=== PATIENT | male | born 1970 | race African-American/Black ===

== ENCOUNTER 2017-03-06 19:14 | Emergency (ER) | payer OTHER ==
[2017-03-06 19:23] VITALS: BMI 31.5
--- NOTE | 2017-03-06 20:21 | PDOC ---
History of Present Illness - General History Source: Patient Exam Limitations: No Limitations - History of Present Illness Initial Comments: 03/06/17 20:26 The patient is a 46 year old male with a significant past medical history of H. pylori, severe heartburn, Acid reflux, who presents to the ED complaining of blood in his stool. He states that he noticed streaks of blood in his stool and blood on the toilet paper when he wiped. Patient states he ate a steak and drank a glass of wine three days ago. Patient states he has noticed that in the past he has had stomach issues after eating beef. Pt denies any family gastric history. Pt had a colonoscopy done in December by Dr. Ramachandran that was unremarkable. GI: Dr. Ramachandran <Schuyler Keen - Last Filed: 03/06/17 20:26> - General History Source: Patient Exam Limitations: No Limitations <Gracie Vincent - Last Filed: 03/06/17 21:21> - General Chief Complaint: Bleeding from Anus Stated Complaint: BLOOD IN STOOL Time Seen by Provider: 03/06/17 19:58 Past History <Schuyler Keen - Last Filed: 03/06/17 20:26> - Past Medical History Other medical history: denies - Psycho/Social/Smoking Cessation Hx Suicidal Ideation: No Smoking History: Never smoked <Gracie Vincent - Last Filed: 03/06/17 21:21> - Past Medical History Allergies/Adverse Reactions: Allergies Allergy/AdvReac Type Severity Reaction Status Date / Time No Known Allergies Allergy Verified 03/06/17 19:23 Home Medications: Ambulatory Orders NK [No Known Home Medication] 03/06/17 Review of Systems - Review of Systems Able to Perform ROS?: Yes Comments:: 03/06/17 20:26 GENERAL/CONSTITUTIONAL: No: fever, chills, weakness, loss of appetite. HEAD, EYES, EARS, NOSE AND THROAT: No: change in vision, ear pain, discharge, sore throat, throat swelling. CARDIOVASCULAR: No: chest pain, lightheadedness, palpitations, syncope RESPIRATORY: No: cough, shortness of breath, wheezing, hemoptysis, stridor. GASTROINTESTINAL: + rectal bleeding. No: nausea, vomiting, abdominal cramping, diarrhea, constipation. GENITOURINARY: No: dysuria, hematuria, frequency, urgency, flank pain. MUSCULOSKELET AL: No: back pain, neck pain, joint pain, muscle swelling or pain SKIN AND BREASTS: No: lesions, pallor, rash or easy bruising. NEUROLOGIC: No: headache, vertigo, paresthesias, weakness ENDOCRINE: No: unexplained weight gain or loss HEMATOLOGIC/LYMPHATIC: No: anemia, easy bleeding, swelling nodes <Schuyler Keen - Last Filed: 03/06/17 20:26> *Physical Exam - Vital Signs Last Vital Signs Temp Pulse Resp BP Pulse Ox 97.8 F 77 18 143/77 100 03/06/17 19:20 03/06/17 19:20 03/06/17 19:20 03/06/17 19:20 03/06/17 19:20 - Physical Exam Comments: 03/06/17 20:27 GENERAL: The patient is in no acute distress. HEAD: Normal with no signs of trauma. EYES: PERRLA, EOMI, sclera anicteric, conjunctiva clear. ENT: Ears normal, nares patent, oropharynx clear without exudates. Moist mucous membranes. NECK: Normal range of motion, supple without lymphadenopathy, JVD, or masses. LUNGS: Breath sounds equal, clear to auscultation bilaterally. No wheezes, and no crackles. HEART:Regular rate and rhythm, normal S1 and S2 without murmur, rub or gallop. ABDOMEN: Soft, nontender, normoactive bowel sounds. No guarding, no rebound. EXTREMITIES: Normal range of motion, no edema. No clubbing or cyanosis. No erythema, or tenderness. NEUROLOGICAL: Cranial nerves II through XII grossly intact. Normal speech. No focal neurological deficits. MUSCULOSKELETAL: Back non-tender to palpation, no CVA tenderness SKIN: Warm, Dry, normal turgor, no rashes or lesions noted. RECTAL EXAM: Trace blood. No external hemorrhoids <Schuyler Keen - Last Filed: 03/06/17 20:26> - Vital Signs Last Vital Signs Temp Pulse Resp BP Pulse Ox 97.8 F 77 18 143/77 100 03/06/17 19:20 03/06/17 19:20 03/06/17 19:20 03/06/17 19:20 03/06/17 19:20 <Gracie Vincent - Last Filed: 03/06/17 21:21> ED Treatment Course - LABORATORY CBC & Chemistry Diagram: 03/06/17 20:28 <Gracie Vincent - Last Filed: 03/06/17 21:21> Medical Decision Making - Medical Decision Making 03/06/17 20:21 A portion of this note was documented by scribe services under my direction. I have reviewed the details of the note, within reason, and agree with the documentation with the following case summary and management plan written by me. Nursing documentation reviewed and incorporated into medical decision making 03/06/17 20:38 This is a 46 yo M with a history of ?IBS, h/o H., pylori x 2 Pt presents to the ER today with a complaint that he noted blood in his stool this afternoon when he had a bowel movement He noted several drops of blood in his stool Slightly constipated No rectal pain No abdominal pain S/p colonoscopy in (reportedly negative) Only change in diet was: Steak and Red wine On examination: no external hemorrhoids seen Stool blood tinged Will send basic labs Will send guiaic Laboratory Tests 04/16/11 03/06/17 03/06/17 01:57 20:24 20:28 WBC 8.0 7.2 Hgb 14.4 13.9 Plt Count 255.0 252 Hct 42.0 41.4 Stool Occult Blood Negative will discharge to home Will ask pt to follow up with GI in 1 week Return to the ER for recurrent or persistent symptoms 03/06/17 21:19 <Gracie Vincent - Last Filed: 03/06/17 21:21> *DC/Admit/Observation/Transfer - Attestations Scribe Attestion: 03/06/17 20:27 Documentation prepared by Schuyler Keen, acting as medical engineer for Gracie Vincent MD. <Schuyler Keen - Last Filed: 03/06/17 20:26> - Discharge Dispostion Admit: No <Gracie Vincent - Last Filed: 03/06/17 21:21> Diagnosis at time of Disposition: Rectal bleeding - Discharge Dispostion Disposition: HOME Condition at time of disposition: Stable - Referrals Referrals: Luisito Paez MD [Primary Care Provider] - - Patient Instructions Printed Discharge Instructions: DI for Rectal Bleeding Additional Instructions: Mr. Foreman Thanks for coming in to the ER please follow up with your commercial lending assistant within in 1 week Please return to the ER with any other concerns or complaints, if you notice increased rectal bleeding, or abdominal pain or any thing else that concerns you
[2017-03-06 20:35] LABS: BASOPHIL 0.6 % (0-2.0); EOSINOPHIL 2.2 % (0-4.5); MCHC 33.4 g/dl (32.0-35.9); MEAN CELL VOLUME 92.8 fl (80-96); MEAN PLT VOLUME 7.6 fl (7.5-11.1); NEUTROPHILS 47.2 % (42.8-82.8); PLATELET COUNT 252 K/MM3 (134-434); RDW 13.9 % (11.9-15.9); WHITE BLOOD COUNT 7.2 K/mm3 (4.0-10.0)
[2017-03-06 21:27] VITALS: BP 124/76; PULSE 60; TEMP 98.1
== END 2017-03-06 21:15 | disposition home or self-care (01) ==
LOC: JER 19:14
DX: K62.5 Hemorrhage of anus and rectum (principal); K21.9 Gastro-esophageal reflux disease without esophagitis
CPT/HCPCS: 36415; 82272; 85025; 99282-25

== ENCOUNTER 2018-02-28 19:32 | Emergency (ER) | payer OTHER ==
[2018-02-28 19:49] VITALS: BP 124/70; PULSE 66; TEMP 98.3; BMI 30.9
[2018-02-28] MEDS ORDERED: IBUPROFEN 400 MG TABLET (FP) PO ONE ×2 (20:15→20:17)
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
== END 2018-02-28 20:27 | disposition home or self-care (01) ==
LOC: JERFT 19:32 → JER 19:32 → JERFT 20:27
DX: Z48.01 Encounter for change or removal of surgical wound dressing (principal); Z98.890 Other specified postprocedural states
CPT/HCPCS: 99281-25

== ENCOUNTER 2018-11-21 11:34 | Emergency (ER) | payer OTHER ==
[2018-11-21 12:16] VITALS: BMI 30.8
[2018-11-21] MEDS ORDERED: MAG HYDROX/AL HYDROX/SIMETH -MYLANTA- ORAL SUSPENSION PO ONE (12:20)
[2018-11-21] MEDS ORDERED: FAMOTIDINE 20 MG/50 ML IVPB 20 MG/50 ML MG IVPB ONE ×2 (12:20→12:35)
--- NOTE | 2018-11-21 12:20 | PDOC ---
History of Present Illness - General Chief Complaint: Chest Pain Stated Complaint: CHEST PAIN Time Seen by Provider: 11/21/18 12:17 History Source: Patient - History of Present Illness Timing/Duration: reports: intermittent Quality: reports: severe Abdominal Pain Onset Location: reports: epigastric Pain Radiation: reports: no radiation, back Past History - Past Medical History Allergies/Adverse Reactions: Allergies Allergy/AdvReac Type Severity Reaction Status Date / Time No Known Allergies Allergy Verified 11/21/18 12:09 Home Medications: Ambulatory Orders Pantoprazole Sodium 40 mg PO DAILY 09/19/18 Famotidine [Pepcid] 20 mg PO DAILY #14 tablet 11/21/18 Mag Hydrox/Al Hydrox/Simeth [Mylanta Suspension -] 30 ml PO Q6H #1 bottle Anemia: No Asthma: No Cancer: No Cardiac Disorders: No CVA: No COPD: No CHF: No Dementia: No Diabetes: No GI Disorders: Yes (GERD) Disorders: No HTN: No Hypercholesterolemia: No Liver Disease: No Seizures: No Thyroid Disease: No - Surgical History Abdominal Surgery: No Appendectomy: No Cardiac Surgery: No Cholecystectomy: No Lung Surgery: No Neurologic Surgery: No Orthopedic Surgery: Yes (RIGHT ANKLE SX X4) - Immunization History Immunization Up to Date: Yes - Suicide/Smoking/Psychosocial Hx Smoking History: Current some day smoker Have you smoked in the past 12 months: No If you are a former smoker, when did you quit?: 1999 Information on smoking cessation initiated: No Hx Alcohol Use: No Drug/Substance Use Hx: No Substance Use Type: Alcohol Hx Substance Use Treatment: No Review of Systems - Review of Systems Constitutional: No: Chills, Fever Respiratory: No: Cough, Shortness of Breath Cardiac (ROS): No: Chest Pain, Lightheadedness, Palpitations ABD/GI: No: Diarrhea, Nausea, Rectal Bleeding, Vomiting, Tarry Stools : No: Dysuria, Flank Pain, Hematuria *Physical Exam - Vital Signs Last Vital Signs Temp Pulse Resp BP Pulse Ox 98.2 F 64 18 129/75 100 11/21/18 12:13 11/21/18 12:13 11/21/18 12:13 11/21/18 12:13 11/21/18 12:13 - Physical Exam General Appearance: Yes: Appropriately Dressed. No: Apparent Distress HEENT: positive: Normal Voice Neck: positive: Supple Respiratory/Chest: positive: Lungs Clear, Normal Breath Sounds. negative: Respiratory Distress Cardiovascular: positive: Regular Rate, S1, S2 Gastrointestinal/Abdominal: positive: Normal Bowel Sounds, Soft. negative: Tender, Distended, Guarding, Rebound Musculoskeletal: negative: CVA Tenderness Integumentary: positive: Dry, Warm Neurologic: positive: Fully Oriented, Alert, Normal Mood/Affect Moderate Sedation - Procedure Monitoring Vital Signs: Procedure Monitoring Vital Signs Temperature 98.2 F 11/21/18 12:13 Pulse Rate 64 11/21/18 12:13 Respiratory Rate 18 11/21/18 12:13 Blood Pressure 129/75 11/21/18 12:13 O2 Sat by Pulse Oximetry (%) 100 11/21/18 12:13 ED Treatment Course - LABORATORY CBC & Chemistry Diagram: 11/21/18 12:44 11/21/18 12:44 Medical Decision Making - Medical Decision Making 11/21/18 12:18 48 yo M, endorses h/o GERD/gastritis ~18 years ago, hpylori x 2 (2006, 2007), currently on protonix but non-compliant, f/u with GI, here w/ burning epigastricc pain 4 days that started shortly after eating pasta and drinking coffee per patient. Has been intermittent since. Pt states he stopped taking his protonix several weeks ago because he does not like how he feels after taking meds but states he took a tab yesterday with no relief. Also tried Nexium with no relief. States pain similar to his gastritis/GERD, but now radiating to his mid back. No worsening with exertion and no shortness of breath, diaphoresis, nausea, vomiting, change in bowel movements, melena, BRBPR , f/c. Pt states his last endoscopy was over 10 years ago and had an appointment to have one done 3 weeks ago, but was unable to follow-up as his daughter got sick. States he has a GI appointment tomorrow see exam Gastritis/GERD Recurrent Non-complaint w/ protonix Missed EGD 3 weeks ago Exam unremarkable here -GI cocktail trial -ekg/labs r/o other etiology -anticipate dc w/ GI f/u (has appt in am) 11/21/18 12:34 11/21/18 14:08 EKG/Labs unremarkable. Patient improved with GI cocktail. Will dc to follow- up with his PMD and GI in the a.m. *DC/Admit/Observation/Transfer Diagnosis at time of Disposition: Epigastric pain - Discharge Dispostion Disposition: HOME Condition at time of disposition: Improved - Prescriptions Prescriptions: Famotidine [Pepcid] 20 mg PO DAILY #14 tablet Mag Hydrox/Al Hydrox/Simeth [Mylanta Suspension -] 30 ml PO Q6H #1 bottle - Referrals - Patient Instructions Printed Discharge Instructions: Gastritis Additional Instructions: Please take meds as directed Refrain from spicy food/caffeine/alcohol Eat small meals throughout the day Please follow up with your PMD and GI tomorrow as scheduled - Post Discharge Activity Forms/Work/School Notes: Back to Work
[2018-11-21] MEDS ORDERED: MAG HYDROX/AL HYDROX/SIMETH 30 ML UNIT-DOSE CUP ONE (12:35)
[2018-11-21 13:05] LABS: BASO % 0.5 % (0-2.0); EOS % 1.4 % (0-4.5); HEMATOCRIT 43.8 % (35.4-49); HEMOGLOBIN 14.9 GM/dL (11.7-16.9); LYMPH % 40.7 % (8-40); MCH 32.3 pg (25.7-33.7); MEAN PLT VOLUME 7.5 fl (7.5-11.1); MONO % 10.1 % (3.8-10.2); NEUT % 47.3 % (42.8-82.8); PLATELET COUNT 278 K/MM3 (134-434); RBC 4.61 M/mm3 (4.00-5.60); RDW 13.8 % (11.9-15.9); WHITE BLOOD COUNT 8.6 K/mm3 (4.0-10.0)
[2018-11-21 13:31] LABS: ALBUMIN 4.1 g/dl (3.4-5.0); ALK PHOS 44 U/L (45-117); ANION GAP 6 MMOL/L (8-16); BILIRUBIN,TOTAL 0.5 mg/dL (0.2-1); BLOOD UREA NITROGEN 10 mg/dL (7-18); CALCIUM 9.3 mg/dL (8.5-10.1); CHLORIDE 106 mmol/L (98-107); CO2 29 mmol/L (21-32); CREATININE 1.1 mg/dL (0.55-1.3); GLUCOSE,RANDOM 81 mg/dL (74-106); LIPASE 230 U/L (73-393); POTASSIUM 4.6 mmol/L (3.5-5.1); SGOT/AST 17 U/L (15-37); SGPT/ALT 42 U/L (13-61); SODIUM 141 mmol/L (136-145); TOT PROT 8.1 g/dl (6.4-8.2)
[2018-11-21 14:22] VITALS: BP 115/74; PULSE 60; TEMP 98.6
--- NOTE | 2018-11-23 13:18 | EKG ---
Test Reason : Blood Pressure : / mmHG Vent. Rate : 070 BPM Atrial Rate : 070 BPM P-R Int : 160 ms QRS Dur : 084 ms QT Int : 366 ms P-R-T Axes : 067 047 009 degrees QTc Int : 395 ms NORMAL SINUS RHYTHM WITH SINUS ARRHYTHMIA NORMAL ECG NO PREVIOUS ECGS AVAILABLE Confirmed by JEANIE MITTAL, YURIDIA ([id number]) on 11/23/2018 1:18:02 PM Referred By: Confirmed By:YURIDIA WARE MD
== END 2018-11-21 14:22 | disposition home or self-care (01) ==
LOC: JER 11:34
PROC: 3E033GC Introduction of Other Therapeutic Substance into Peripheral Vein, Percutaneous Approach (ICD-10-PCS; principal; 2018-11-21)
DX: K29.60 Other gastritis without bleeding (principal); K21.9 Gastro-esophageal reflux disease without esophagitis
CPT/HCPCS: 36415; 80053; 82550; 82553; 83690; 84484; 85025; 93005; 93010; 96365; 99283-25

== ENCOUNTER 2019-04-28 17:22 | Emergency (ER) | payer OTHER ==
--- NOTE | 2019-04-28 17:37 | PDOC ---
Rapid Medical Evaluation Chief Complaint: CVA/TIA Time Seen by Provider: 04/28/19 17:32 Medical Evaluation: Allergies Allergy/AdvReac Type Severity Reaction Status Date / Time No Known Allergies Allergy Verified 04/28/19 17:35 04/28/19 17:35 I have performed a brief in-person evaluation of this patient. The patient presents with a chief complaint of: facial tingling Pertinent physical exam findings:stable and in NAD, non-focal I have ordered the following: ekg done in triage The patient will proceed to the ED for further evaluation.
[2019-04-28 17:47] VITALS: TEMP 98; BMI 33.0
--- NOTE | 2019-04-28 18:08 | PDOC ---
History of Present Illness - General Chief Complaint: CVA/TIA Stated Complaint: TINGLING ON FACE Time Seen by Provider: 04/28/19 17:32 History Source: Patient Exam Limitations: No Limitations - History of Present Illness Initial Comments: HPI: 48 y/o male presenting to [facility] ER complaining of intermittent pins and needles sensation to right side of face. Started last night after smoking marijuana. Reports that the marjiana was from a new batch and it tasted/smelled differently. Expressed concern it may have been K2. Denies numbness or tingling in arms or legs. Denies loss of strength, difficulty talking, or facial weakness. PCP: Dr. Paez Social Hx: - Street drugs: occasional marijuana usage Medical Hx: - Pt denies past medical history. Denies prescription medications. - Started taking Wheat grass, turmeric pills, and apple cider vinegar three days ago Review of Systems: In addition to that documented in the HPI above, the additional ROS was obtained : Constitutional: Denies fevers or chills Head: Denies vision or hearing changes ENMT: Denies sore throat CV: Denies chest pain Resp: Denies SOB GI: Denies vomiting or diarrhea : Denies painful urination MSK: Denies recent trauma Skin: Denies new rashes Neuro: Per HPI Endocrine: Denies polyuria Heme: Denies bleeding or bruising Physical Examination: Constitutional: Well-developed, well-nourished adult male in no acute distress or obvious discomfort. Found semi-fowlers on hospital bed. Alert and oriented x4. Answered all questions appropriately and completely. Speech was non-labored , non-pressured. Head: Normocephalic. No obvious external signs of trauma. Eyes: Pupils 4mm and PERRL bilaterally. EOMI. No horizontal or vertical nystagmus. Sclerae white. Conjunctiva moist and not injected. Ears: Hearing grossly intact. Nose: No nasal discharge. Throat: Oral cavity and pharynx normal. No inflammation, swelling, exudate, or lesions. Teeth and gingiva in good general condition. Uvula midline. No tongue deviation. Neck: Supple, trachea is midline. Cardiovascular / Chest: Regular rate and regular rhythm. No murmur, rubs, clicks , or gallops. Peripheral pulses: radial pulses full. No pretibial edema. Respiratory: Breathing unlabored. Equal chest rise and fall. Clear to auscultation bilaterally. No stridor, no wheezing, no rhonchi. Gastrointestinal: abdomen is soft, non-tender, non-distended. Neuro: Alert and oriented. Moving all four extremities spontaneously. No focal deficits. Cranial nerves intact. Sensation to all four extremities intact. Reports facial sensation intact and equal bilaterally in all three trigeminal distributions. Upper and lower extremities: proximal and distal strength 5/5. Consumer Insight Analyst strength 5/5 - equal and symmetric. Plantar flexion and dorsiflexion 5/5. No nuchal rigidity. No drift in upper and/or lower extremities. Skin: Warm, dry, and intact. Psych: Affect: appropriate. Mood: normal. MDM: *Reviewed vital signs, nursing notes, and prior visit documentation (if available). 48 y/o male presenting with two days of right sided facial pins/needles in V2 distribution after smoking weed. Afebrile. Vitals unremarkable for hypotension or tachycardia. Physical exam as described above. Neurologically intact with reported normal facial sensation. Low suspicion for CVA/TIA. NIH stroke scale 0. Suspect possible marijuana side effect versus early shingles symptoms. Will obtain CBC, CMP, and Head CT. CBC unremarkable for anemia or leukocytosis. CMP unremarkable for electrolyte derangement, LFT elevation, or Cr/BUN elevation. Head CT unremarkable for acute intracranial injury. ED Attending discussed case with neurologist, Dr. Jacobs. Will see pt in office next week. Discussed imaging and laboratory results with pt. Answered all questions. Provided return precautions. Pt expressed verbal understanding and agreement with plan to discharge home with outpatient neurology follow up. Also sent prescription for Valtrex to pharmacy with instructions to start taking within 48 hours of rash, if it develops. Josh Mix M.D., PGY1 Emergency Medicine Resident NIH Stroke Scale - Last Known Well Date/Time & Onset Date Last Known Well: 04/27/19 Time Last Known Well: 20:00 - Initial Evaluation Level of consciousness: Alert Ask patient the month and their age: Answers both correctly Ask patient to open & close eyes; make fist and let go: Obeys both correctly Best gaze (horizontal eye movement): Normal Visual field testing: No visual field loss Facial paresis (Show teeth/raise eyebrows/close eyes tight): Normal symmetrical movement Motor Function: Left Arm: Normal Motor Function: Right Arm: Normal (extends arm 90 (or 45) degrees for 10 seconds without drift Motor Function: Left Leg: Normal (extends leg 30 degrees for 5 seconds without drift) Motor Function: Right Leg: Normal (extends leg 30 degrees for 5 seconds without drift) Limb Ataxia: No ataxia Sensory(Use pinprick test arms,legs,trunk,face/side to side): Normal Best language (Describe picture, name items, read sentences): No Aphasia Dysarthria (read several words): Normal articulation Extinction and Inattention: No abnormality - Total Score NIH Stroke Scale Score: 0 Past History - Past Medical History Allergies/Adverse Reactions: Allergies Allergy/AdvReac Type Severity Reaction Status Date / Time No Known Allergies Allergy Verified 04/28/19 17:35 Home Medications: Ambulatory Orders Pantoprazole Sodium 40 mg PO DAILY 09/19/18 Famotidine [Pepcid] 20 mg PO DAILY #14 tablet 11/21/18 Mag Hydrox/Al Hydrox/Simeth [Mylanta Suspension -] 30 ml PO Q6H #1 bottle Valacyclovir HCl [Valtrex] 1,000 mg PO TID 7 Days #21 tablet 04/28/19 Anemia: No Asthma: No Cancer: No Cardiac Disorders: No CVA: No COPD: No CHF: No Dementia: No Diabetes: No GI Disorders: Yes (GERD) Disorders: No HTN: No Hypercholesterolemia: No Liver Disease: No Seizures: No Thyroid Disease: No - Surgical History Abdominal Surgery: No Appendectomy: No Cardiac Surgery: No Cholecystectomy: No Lung Surgery: No Neurologic Surgery: No Orthopedic Surgery: Yes (RIGHT ANKLE SX X4) - Immunization History Immunization Up to Date: Yes - Suicide/Smoking/Psychosocial Hx Smoking History: Never smoked Have you smoked in the past 12 months: No If you are a former smoker, when did you quit?: 1999 Information on smoking cessation initiated: No Hx Alcohol Use: No Drug/Substance Use Hx: Yes (MARIJUANA) Substance Use Type: Alcohol Hx Substance Use Treatment: No *Physical Exam - Vital Signs Last Vital Signs Temp Pulse Resp BP Pulse Ox 98.0 F 72 16 125/86 96 04/28/19 17:35 04/28/19 17:35 04/28/19 17:35 04/28/19 17:35 04/28/19 17:35 ED Treatment Course - LABORATORY CBC & Chemistry Diagram: 04/28/19 18:20 04/28/19 18:20 *DC/Admit/Observation/Transfer Diagnosis at time of Disposition: Numbness and tingling of right side of face - Discharge Dispostion Disposition: HOME Condition at time of disposition: Good Decision to Admit order: No - Prescriptions Prescriptions: Valacyclovir HCl [Valtrex] 1,000 mg PO TID 7 Days #21 tablet - Referrals Referrals: Luisito Paez MD [Primary Care Provider] - Josemanuel Jacobs MD [Staff Physician] - - Patient Instructions Printed Discharge Instructions: DI for Shingles, DI for Numbness/tingling Additional Instructions: You were seen today for intermittent right sided facial pins and needles. Your blood work, EKG, and head CT were normal today. Your symptoms are not likely to be a stroke, but may be the early stages of shingles. I have sent a prescription for Valtrex to your pharmacy. Start taking this medication within 48 hours of developing a rash to the area on your face. If you do not develop a rash, do not take the medication. You should also follow up with a neurologist within the next week. I have entered a referral for you to see Dr. Jacobs. His office will call you on Wednesday (01 May 2019) to make the appointment. You can also call the office if you do not hear from them. The number is included in this packet. A copy of todays results are attached to this packet. Take it to the appointment so your doctor can review them. You can also follow up with your primary care doctor. You will need to call to make an appointment. The number is included in this packet. A copy of todays results are attached to this packet. Take it to the appointment so your doctor can review them. Go to the nearest emergency department if your condition worsens or you feel like you need additional emergency evaluation. Print Language: SRI LANKAN - Post Discharge Activity Forms/Work/School Notes: Back to Work
[2019-04-28 18:54] LABS: BASO % 0.5 % (0-2.0); EOS % 2.2 % (0-4.5); HEMATOCRIT 44.5 % (35.4-49); HEMOGLOBIN 14.9 GM/dL (11.7-16.9); LYMPH % 42.8 % (8-40); MCH 31.6 pg (25.7-33.7); MCHC 33.5 g/dl (32.0-35.9); MEAN CELL VOLUME 94.5 fl (80-96); MEAN PLT VOLUME 8.1 fl (7.5-11.1); MONO % 8.7 % (3.8-10.2); NEUT % 45.8 % (42.8-82.8); PLATELET COUNT 268 K/MM3 (134-434); RBC 4.71 M/mm3 (4.00-5.60); RDW 13.9 % (11.9-15.9); WHITE BLOOD COUNT 6.6 K/mm3 (4.0-10.0)
[2019-04-28 19:15] LABS: ALBUMIN 4.3 g/dl (3.4-5.0); BILIRUBIN,TOTAL 0.6 mg/dL (0.2-1); BLOOD UREA NITROGEN 17.5 mg/dL (7-18); CALCIUM 9.5 mg/dL (8.5-10.1); CREATININE 1.1 mg/dL (0.55-1.3); POTASSIUM 4.4 mmol/L (3.5-5.1); TOT PROT 8.4 g/dl (6.4-8.2)
[2019-04-28 20:22] VITALS: BP 121/89; PULSE 74
--- NOTE | 2019-04-28 21:06 | PDOC ---
Documentation entered by Ellen Foster SCRIBE, acting as scribe for Ronnie Chavez MD. Ronnie Chavez MD: This documentation has been prepared by the Kristin caro Xhesika, SCRIBE, under my direction and personally reviewed by me in its entirety. I confirm that the documentation accurately reflects all work, treatment, procedures, and medical decision making performed by me. Attending Attestation - Resident Resident Name: Josh Mix - ED Attending Attestation I have performed the following: I have examined & evaluated the patient, The case was reviewed & discussed with the resident, I agree w/resident's findings & plan, Exceptions are as noted - HPI HPI: 04/28/19 18:27 The patient is a 48 year old male, with a significant PMH of GERD/gastritis who presents to the emergency department with intermittent R sided facial tingling and numbness since last night. The patient states the sensation is intermittent and feels like pins and needles under his R eye, to his R cheek and R lateral nose. The patient states he smoked marijuana last night and was feeling fine. He was able to sleep last night but the symptoms returned today prompting visit to the ED. Patient states he was at the park for 3 hours today, came home, turned the AC on when he felt the funny feeling in the same distribution. The patient reports he has been drinking wheatgrass and apple cider vinegar the past 3 days for health reasons. The patient denies chest pain, shortness of breath, headache and dizziness, other focal weakness or numbness. Denies fever, chills, nausea, vomiting, diarrhea and constipation. Denies dysuria, frequency, urgency and hematuria. Allergies: NKDA Past surgical history: R ankle surgery x4 Social history: Occasional Marijuana use. PCP: Luisito Wen - Physicial Exam PE: 04/28/19 20:27 GENERAL: Awake, alert, and fully oriented, in no acute distress HEAD: No signs of trauma EYES: PERRLA, EOMI, sclera anicteric, conjunctiva clear ENT: Auricles normal inspection, hearing grossly normal, nares patent, oropharynx clear without exudates. Moist mucosa NECK: Normal ROM, supple, no lymphadenopathy, JVD, or masses LUNGS: Breath sounds equal, clear to auscultation bilaterally. No wheezes, and no crackles HEART: Regular rate and rhythm, normal S1 and S2, no murmurs, rubs or gallops ABDOMEN: Soft, nontender, normoactive bowel sounds. No guarding, no rebound. No masses EXTREMITIES: Normal range of motion, no edema. No clubbing or cyanosis. No cords, erythema, or tenderness NEUROLOGICAL: Normal speech, cranial nerves intact, negative pronator drift, 5/ 5 strength in all 4 extremities, normal sensation to light touch in all 4 extremities, normal cerebellar exam, normal gait, normal reflexes and tone SKIN: Warm, Dry, normal turgor, no rashes or lesions noted. - Medical Decision Making 04/28/19 20:28 48yo M, with no sig PMH or risk factors for stroke presents to the ED with intermittent tingling/hypersensitivity sensation in the V2 distribution. Vitals wnl Exam wnl, pt is neuro intact DDx includes zoster prodrome vs trigeminal neuralgia vs atypical migraine vs TIA vs CVA Currently pt denies sensation Labs, CTH wnl Low likelihood of TIA or CVA as pt has no risk factors and NIHSS is 0 Unlikely atypical migraine as pt denies headache Unlikely trigeminal neuralgia as symptoms are mild when he has them Case discussed with Dr. Jacobs from neurology, recommends giving pt script for valtrex should he develop a rash and to have pt f/u with him on Wednesday. He recommends I send him the pt's information in order for his office staff to call pt on Wednesday to arrange appt on Wednesday Plan discussed with pt, expresses understanding Strict return precautions given should he develop any new, worsneing, or concerning symptoms Pt clincially stable and well appearing for DC home I discussed the physical exam findings, ancillary test results and final diagnoses with the patient. I answered all of the patient's questions. The patient was satisfied with the care received and felt comfortable with the discharge plan and treatment plan. The patient will call their primary care physician within 24 hours to arrange follow-up and will return to the Emergency Department with any new, persistent or worsening symptoms.
--- NOTE | 2019-05-01 00:32 | EKG ---
Test Reason : Blood Pressure : / mmHG Vent. Rate : 058 BPM Atrial Rate : 058 BPM P-R Int : 174 ms QRS Dur : 082 ms QT Int : 394 ms P-R-T Axes : 054 038 008 degrees QTc Int : 386 ms SINUS BRADYCARDIA OTHERWISE NORMAL ECG WHEN COMPARED WITH ECG OF 21-NOV-2018 11:38, NO SIGNIFICANT CHANGE WAS FOUND Confirmed by MD Navin, Garett ([id number]) on 05/01/2019 12:32:19 AM Referred By: Confirmed By:Garett Holden MD
== END 2019-04-28 20:22 | disposition home or self-care (01) ==
LOC: SUPCPDRO 17:22 → JER 17:22
DX: R20.2 Paresthesia of skin (principal)
CPT/HCPCS: 36415; 70450-TC; 80053; 85025; 93005; 93010; 99282-25

== ENCOUNTER 2019-06-27 12:30 | Day surgery (SDC) | payer OTHER ==
[2019-06-26 10:47] VITALS: BMI 31.5
[2019-06-27] MEDS ORDERED: LIDOCAINE HCL 1%, 10 MG/ML (20ML VIAL) ONE (13:04)
[2019-06-27] MEDS ORDERED: BUPIVACAINE HCL/PF 0.5% (5 MG/ML) 30 ML VIAL IJ ONE (13:05)
[2019-06-27] MEDS ORDERED: LIDOCAINE HCL 2% (20ML MULTI-DOSE VIAL) NR ONE (13:05)
[2019-06-27] MEDS ORDERED: MIDAZOLAM HCL 2 MG/2 ML SINGLE DOSE VIAL ONE (13:24)
[2019-06-27] MEDS ORDERED: PROPOFOL 20 ML ONE (13:39)
[2019-06-27] MEDS ORDERED: LIDOCAINE HCL 1%, 10 MG/ML (20ML VIAL) INF ONE ×2 (13:39)
[2019-06-27] MEDS ORDERED: ceFAZolin SODIUM 1 GM VIAL ONE (13:39)
[2019-06-27] MEDS ORDERED: ceFAZolin SODIUM 1 GM VIAL IVPB ONE (13:40)
[2019-06-27] MEDS ORDERED: KETOROLAC TROMETHAMINE 30 MG/1 ML VIAL ONE (13:51)
--- NOTE | 2019-06-27 14:07 | HP ---
Admitting History and Physical - Admission Chief Complaint: Left hallucal thickened and painfulnail History of Present Illness: 49 y/o male wit hhisotry of long standing onycomycosis and ingrowing nails for nail avulsion of left nail. History Source: Patient Limitations to Obtaining History: No Limitations - Smoking History Smoking history: Never smoked Have you smoked in the past 12 months: No If you are a former smoker, when did you quit?: 1999 - Alcohol/Substance Use Hx Alcohol Use: No - Social History History of Recent Travel: No Home Medications - Allergies Allergies/Adverse Reactions: Allergies Allergy/AdvReac Type Severity Reaction Status Date / Time No Known Allergies Allergy Verified 06/27/19 12:59 - Home Medications Home Medications: Ambulatory Orders Famotidine [Pepcid] 20 mg PO DAILY #14 tablet 11/21/18 Mag Hydrox/Al Hydrox/Simeth [Mylanta Suspension -] 30 ml PO PRN PRN 06/26/19 Physical Examination Vital Signs: Vital Signs Temperature 97.7 F 06/27/19 12:58 Pulse Rate 51 L 06/27/19 12:58 Respiratory Rate 20 06/27/19 12:58 Blood Pressure 124/76 06/27/19 12:58 O2 Sat by Pulse Oximetry (%) 100 06/27/19 12:55 Assessment/Plan 49 y/o male for full nail avulsion left hallux
--- NOTE | 2019-06-27 14:08 | OP ---
Operative Note - Note: Operative Date: 06/27/19 Pre-Operative Diagnosis: Left hallux onychomycosis Operation: Left hallux total nail avulsion. Findings: See dictation Post-Operative Diagnosis: Same as Pre-op Anesthesia: Local, MAC Specimens Removed: nail Estimated Blood Loss (mls): 3 Operative Report Dictated: Yes
--- NOTE | 2019-06-27 14:12 | OPR ---
Pre op diagnosis : left foot onychomycosos Post op diagnosis: same Procedure performed; left foot hallux total nail avulsion Surgeon: Dr. Saroj Smart Anesthesia: Mac with local Indication: 49 y/o male with the above mention diagnosis presents for surgical removal of the lef tnail. Following discussion of risks and benefits for proposed procedure patient signed conset form. NPO status verified and periop antibiotics were given. Patient taken to operating room and placed on OR table in supine position. Following induction of IV Sed local injection of 10cc 2% lido plain was injected into the left toe in local block type fashion. Following injection foot was prepped and draped in normal sterile manner and procedure began. Attn was directed to the left hallux where utilizing a freer elevator the nail was freed from the base of the nail proximally. The nail was then bisected down the middle of the nail. Following this a hemostat was used to lift the nail away from the nail bed w/o complication. The wound was flushed. The wound was redressed with bacitracin DSD w/o complication Patient tolerated anesthesia well and w/o complication. Was transported to the PACU with VSS and NVSI to the left foot. Patient will follow up with me in 1 week as discussed with the patient.
--- NOTE | 2019-06-27 14:14 | DS ---
Physical Examination Vital Signs: Vital Signs Temperature 97.7 F 06/27/19 12:58 Pulse Rate 51 L 06/27/19 12:58 Respiratory Rate 20 06/27/19 12:58 Blood Pressure 124/76 06/27/19 12:58 O2 Sat by Pulse Oximetry (%) 100 06/27/19 12:55 Findings/Remarks: s/p left hallux nail avulsion. Peripheral Pulses WNL: Yes Peripheral Pulses: Left Doralis Pedis: 2+, Right Dorsalis Pedis: 2+ Integumentary: Yes: WNL Wound/Incision: Yes: Clean/Dry, Well Approximated, Sutures Intact Neurological: Yes: WNL Discharge Summary Reason For Visit: ONYCHOMYCOSIS Procedures: Principal: left nail avulsion. Condition: Stable - Instructions Diet, Activity, Other Instructions: WBAT to the left foot in open toed shoe gear f/u in 1 week with me in [place] office. Disposition: HOME - Home Medications Comprehensive Discharge Medication List: Ambulatory Orders Famotidine [Pepcid] 20 mg PO DAILY #14 tablet 11/21/18 Mag Hydrox/Al Hydrox/Simeth [Mylanta Suspension -] 30 ml PO PRN PRN 06/26/19
[2019-06-27] MEDS ORDERED: oxyCODONE HCL 5 MG TABLET PO PRN (15:12)
[2019-06-27] MEDS ORDERED: ONDANSETRON 4 MG/2 ML VIAL IVPUSH PRN (15:12)
[2019-06-27] MEDS ORDERED: LACTATED RINGERS SOLUTION 1,000 ML IV SCH (15:15)
[2019-06-27 16:21] VITALS: BP 121/69; PULSE 60; TEMP 97.9
--- NOTE | 2019-07-04 10:49 | PATH ---
Surgical Pathology Report Patient Name: ELBA BERRIOS Med. Rec. #: [id number] /Age/Gender: 1970 (Age: 49) / M Account: [id number] Location: [facility] Taken: 06/27/2019 Received: 06/27/2019 Reported: 07/04/2019 Physicians: Saroj Smart DPM Specimen(s) Received LEFT GREAT TOE NAIL AVULSION Clinical History Onychomycosis Final Diagnosis LEFT GREAT TOE, NAIL AVULSION, EXCISION: PORTION OF DYSTROPHIC NAIL WITH ONYCHOMYCOSIS. Comment: PAS stain highlighted fungal hyphae. Electronically Signed Malcolm Rodriguez M.D. Gross Description Received in formalin, labeled "left great toe, nail avulsion" are four portions of nail with [place]-black discoloration, ranging from 1.2-1.5 cm in greatest dimension. Seat Installer tissue is submitted in one cassette after decalcification. AE/06/29/2019 ebram/06/29/2019
== END 2019-06-27 16:00 | disposition home or self-care (01) ==
LOC: JASU-SURG 12:30
PROVIDERS: ATTEND Podiatrist Foot & Ankle Surgery
PROC: 0HDRXZZ Extraction of Toe Nail, External Approach (ICD-10-PCS; principal; 2019-06-27 15:00)
DX: B35.1 Tinea unguium (principal)
CPT/HCPCS: 88304-TC; 88311-TC; 88312-TC

== ENCOUNTER 2021-08-26 14:08 | Emergency (ER) | payer OTHER ==
[2021-08-26 14:29] VITALS: BP 122/82; PULSE 86; TEMP 98.6; BMI 36.3
[2021-08-26] MEDS ORDERED: KETOROLAC TROMETHAMINE 30 MG/1 ML VIAL IM ONE (14:48)
[2021-08-26] MEDS ORDERED: METHOCARBAMOL 500 MG TABLET PO ONE (14:48)
[2021-08-26] MEDS ORDERED: KETOROLAC TROMETHAMINE 30 MG/1 ML VIAL ONE (14:51)
[2021-08-26] MEDS ORDERED: METHOCARBAMOL 500 MG TABLET ONE (14:51)
== END 2021-08-26 15:47 | disposition home or self-care (01) ==
LOC: JER 14:08
PROC: 3E0233Z Introduction of Anti-inflammatory into Muscle, Percutaneous Approach (ICD-10-PCS; principal; 2021-08-26)
DX: S86.912A Strain of unspecified muscle(s) and tendon(s) at lower leg level, left leg, initial encounter (principal); S63.501A Unspecified sprain of right wrist, initial encounter; S76.912A Strain of unspecified muscles, fascia and tendons at thigh level, left thigh, initial encounter; X50.0XXA Overexertion from strenuous movement or load, initial encounter; Y04.0XXA Assault by unarmed brawl or fight, initial encounter
CPT/HCPCS: 73110-TC-RT-FY; 73130-TC-RT-FY; 73590-TC-LT-FY; 99284-25

== ENCOUNTER 2021-09-01 09:50 | Emergency (ER) | payer OTHER ==
[2021-09-01 09:57] VITALS: BP 120/71; PULSE 58; TEMP 97.9; BMI 32.3
== END 2021-09-01 12:40 | disposition home or self-care (01) ==
LOC: JERFT 09:50
DX: M79.605 Pain in left leg (principal)
CPT/HCPCS: 73700-TC-RT; 93971-TC; 99284-25

== ENCOUNTER 2021-09-16 09:28 | Emergency (ER) | payer OTHER ==
[2021-09-16 09:44] VITALS: BP 115/74; PULSE 55; TEMP 97.9; BMI 30.8
== END 2021-09-16 10:55 | disposition home or self-care (01) ==
LOC: JERFT 09:28
DX: K05.6 Periodontal disease, unspecified (principal); R22.0 Localized swelling, mass and lump, head
CPT/HCPCS: 70330-TC-FY; 99284-25

== ENCOUNTER 2022-06-13 15:28 | Emergency (ER) | payer OTHER ==
[2022-06-13 15:37] VITALS: BP 122/74; PULSE 51; RESP 19; TEMP 97.8; BMI 32.5
[2022-06-13] MEDS ORDERED: ASPIRIN 81 MG CHEWABLE TABLETS PO ONE (16:17)
[2022-06-13] MEDS ORDERED: ASPIRIN 81 MG CHEWABLE TABLETS ONE (16:28)
[2022-06-13 17:17] LABS: BASO % 0.7 % (0-2.0); EOS % 2.4 % (0-4.5); HEMATOCRIT 42.9 % (35.4-49); HEMOGLOBIN 14.6 GM/dL (11.7-16.9); LYMPH % 39.5 % (8-40); MCH 32.2 pg (25.7-33.7); MCHC 34.1 g/dl (32.0-35.9); MEAN CELL VOLUME 94.5 fl (80-96); MEAN PLT VOLUME 7.6 fl (7.5-11.1); MONO % 7.6 % (3.8-10.2); NEUT % 49.8 % (42.8-82.8); PLATELET COUNT 256 10^3/uL (134-434); RBC 4.54 M/mm3 (4.00-5.60); RDW 14.2 % (11.9-15.9)
[2022-06-13 17:41] LABS: BLOOD UREA NITROGEN 10.9 mg/dL (7-18); CALCIUM 9.1 mg/dL (8.5-10.1)
[2022-06-13 17:46] LABS: BILIRUBIN,TOTAL 0.4 mg/dL (0.2-1); TOT PROT 8.5 g/dl (6.4-8.2)
[2022-06-13 17:47] LABS: ALBUMIN 4.4 g/dl (3.4-5.0)
== END 2022-06-13 19:37 | disposition home or self-care (01) ==
LOC: JER 15:28
DX: M54.2 Cervicalgia (principal); R07.9 Chest pain, unspecified
CPT/HCPCS: 36415; 71046-TC-FY; 80053; 83735; 84439; 84443; 84484; 85025; 93005; 93010; 99284-25

== ENCOUNTER 2024-09-12 09:01 | Emergency (ER) | payer OTHER ==
[2024-09-12 09:07] VITALS: BP 121/78; BMI 34.4
[2024-09-12 09:29] VITALS: PULSE 58; RESP 16; TEMP 98.2
[2024-09-12] MEDS ORDERED: OXYMETAZOLINE 0.05% NASAL SOLUTION 15 ML BOTTLE NS PRN (10:25)
[2024-09-12] MEDS ORDERED: LORATADINE 10 MG TABLET ONE (10:41)
[2024-09-12] MEDS ORDERED: ACETAMINOPHEN 325 MG TABLET (FP) ONE (10:41)
[2024-09-12] MEDS: ACETAMINOPHEN 500 MG TABLET (FP) PO ONE (10:52)
[2024-09-12] MEDS: LORATADINE 10 MG TABLET PO ONE (10:52)
== END 2024-09-12 11:52 | disposition home or self-care (01) ==
LOC: JER 09:01
DX: J30.9 Allergic rhinitis, unspecified (principal); R09.81 Nasal congestion; R09.82 Postnasal drip; R51.9 Headache, unspecified
CPT/HCPCS: 99283-25

== ENCOUNTER → 2024-10-18 | Day surgery (SDC) | payer OTHER ==
[2024-10-17 11:40] VITALS: BMI 33.0
[~2024-10-18] MED LIST: ACETAMINOPHEN 500 MG TABLET (FP) PO PRN; DEXAMETHASONE SOD PHOSPHATE 4 MG/1 ML VIAL ONE; KETOROLAC TROMETHAMINE 30 MG/1 ML VIAL ONE; LACTATED RINGERS SOLUTION 1,000 ML IV SCH; LIDOCAINE HCL 1%, 10 MG/ML (20ML VIAL) ONE; LIDOCAINE HCL 2% 100 MG/5 ML DISP.SYRIN ONE; MIDAZOLAM HCL 2 MG/2 ML SINGLE DOSE VIAL ONE; ONDANSETRON 4 MG/2 ML VIAL IVPUSH PRN; ONDANSETRON 4 MG/2 ML VIAL ONE; PROPOFOL 20 ML ONE
[2024-10-18] MEDS: LIDOCAINE HCL 1%, 10 MG/ML (20ML VIAL) NR ONE (08:07)
[2024-10-18 11:35] VITALS: BP 108/71; PULSE 61; RESP 20; TEMP 97.3
== END | disposition home or self-care (01) ==
LOC: JASU-SURG 04:14
PROVIDERS: ATTEND Podiatrist Foot & Ankle Surgery
PROC: 0SBF4ZZ Excision of Right Ankle Joint, Percutaneous Endoscopic Approach (ICD-10-PCS; 2024-10-18)
PROC: 0SBF4ZZ Excision of Right Ankle Joint, Percutaneous Endoscopic Approach (ICD-10-PCS; principal; 2024-10-18 07:30)
DX: M19.171 Post-traumatic osteoarthritis, right ankle and foot (principal)
CPT/HCPCS: 94760